=== PATIENT | male | born 1995 | race Two or more races ===

== ENCOUNTER 2020-10-19 19:16 | Emergency (ER) | payer OTHER ==
[~2020-10-19] VITALS: Ht 180.3 cm; Wt 81.6 kg
[2020-10-19] MEDS ORDERED: DOLOGEN CAPLET1 EACH PO (22:05)
== END 2020-10-19 22:35 | disposition home or self-care (01) ==
LOC: ER 19:16
DX: B34.9 Viral infection, unspecified (principal); R19.7 Diarrhea, unspecified; R50.9 Fever, unspecified; Z03.818 Encounter for observation for suspected exposure to other biological agents ruled out

== ENCOUNTER 2022-05-28 21:41 | Emergency (ER) | payer OTHER ==
[~2022-05-28] VITALS: Ht 180.3 cm; Wt 85.7 kg
[~2022-05-28 21:41] MED LIST: DOLOGEN CAPLET1 EACH PO
[2022-05-29] MEDS ORDERED: CEPHALEXIN500 MG PO (02:52)
== END 2022-05-29 03:28 ==
LOC: ER 21:41
DX: J03.80 Acute tonsillitis due to other specified organisms (principal)